=== PATIENT | male | born 1995 | race Asian ===

== ENCOUNTER 2019-03-11 15:52 | Emergency (ER) | payer BC ==
--- NOTE | 2019-03-11 19:11 | UC ---
Abdominal Pain Male HPI - HPI Summary HPI Summary: 23 yo male presents to [facility] ED with abdominal pain. He tells me that on 03/07 he developed abdominal pain around his belly button and vomited a few times. On had some mild pain and was nauseous, but was able to eat and drink. On 03/09 felt well and had no more pain or symptoms. Yesterday 03/10 developed generalized abdominal pain and had 10+ episodes of watery diarrhea. Today his abdominal pain has continued, but has had no nausea, vomiting, or diarrhea. No BM. He has not eaten or drank anything today. Throughout this illness denies fever, chills, SOB, chest pain, dysuria. - History of Current Complaint Chief Complaint: EDAbdPain Stated Complaint: ABD PAIN/NAUSEA/DIARRHEA PER PT Time Seen by Provider: 03/11/19 19:11 Hx Obtained From: Patient Pain Intensity: 6 - Allergies/Home Medications Allergies/Adverse Reactions: Allergies Allergy/AdvReac Type Severity Reaction Status Date / Time No Known Allergies Allergy Verified 03/11/19 15:58 Home Medications: Home Medications NK [No Home Medications Reported] 03/11/19 [History Confirmed 03/11/19] PMH/Surg Hx/FS Hx/Imm Hx - Additional Past Medical History Additional PMH: None - Surgical History Surgical History: None - Family History Known Family History: Positive: None - Social History Occupation: Student Lives: Dormitory/Roommates Alcohol Use: Occasionally Substance Use Type: None Smoking Status (MU): Never Smoked Tobacco Review of Systems All Other Systems Reviewed And Are Negative: Yes Constitutional: Positive: Negative Skin: Positive: Negative Eyes: Positive: Negative ENT: Positive: Negative Respiratory: Positive: Negative Cardiovascular: Positive: Negative Gastrointestinal: Positive: Abdominal Pain, Vomiting, Diarrhea Genitourinary: Positive: Negative Neurovascular: Positive: Negative Neurological: Positive: Negative Psychological: Positive: Negative Physical Exam - Summary Physical Exam Summary: GENERAL: NAD. WDWN. No pain distress. SKIN: No rashes, sores, lesions, or open wounds. NECK: Supple. Nontender. No lymphadenopathy. CHEST: CTAB. No r/r/w. No accessory muscle use. Breathing comfortably and in no distress. CV: RRR. Without m/r/g. Pulses intact. Cap refill <2seconds ABDOMEN: Mild TTP LUQ. Soft. No distention or guarding. No organomegaly. No CVA tenderness. Bowel sounds present NEURO: Alert. PSYCH: Age appropriate behavior. Triage Information Reviewed: Yes Vital Signs: Initial Vital Signs Temp 98.3 F 03/11/19 15:55 Pulse 90 03/11/19 15:55 Resp 16 03/11/19 15:55 BP 146/70 03/11/19 15:55 Pulse Ox 98 03/11/19 15:55 Laboratory Tests 03/11/19 03/11/19 03/11/19 18:55 19:19 19:19 WBC 14.9 H RBC 6.83 H Hgb 12.7 L Hct 40 MCV 58 L MCH 19 L MCHC 32 RDW 16 H Plt Count 202 MPV 8.8 Neut % (Auto) 82.9 Lymph % (Auto) 9.9 [place] % (Auto) 6.8 Eos % (Auto) 0.2 Baso % (Auto) 0.2 Absolute Neuts (auto) 11.9 H Absolute Lymphs (auto) 1.4 Absolute Monos (auto) 1.0 H Absolute Eos (auto) 0 Absolute Basos (auto) 0 Absolute Nucleated RBC 0 Nucleated RBC % 0 Hypochromasia 1+ Anisocytosis 1+ Microcytosis 2+ Target Cells 1+ Sodium 138 Potassium 4.2 Chloride 104 Carbon Dioxide 26 Anion Gap 8 BUN 13 Creatinine 0.90 Est GFR ( Amer) 128.9 Est GFR (Non-Af Amer) 106.5 BUN/Creatinine Ratio 14.4 Glucose 95 Calcium 9.5 Total Bilirubin 1.60 H AST 21 ALT 30 Alkaline Phosphatase 92 C-Reactive Protein 37.44 H Total Protein 7.1 Albumin 4.5 Globulin 2.6 Albumin/Globulin Ratio 1.7 Amylase 27 L Lipase < 10 L Urine Color Yellow Urine Appearance Clear Urine pH 8.0 Ur Specific [place] 1.010 Urine Protein Negative Urine Ketones Trace A Urine Blood Negative Urine Nitrate Negative Urine Bilirubin Negative Urine Urobilinogen Negative Ur Leukocyte Esterase Negative Urine Glucose Negative Vital Signs Reviewed: Yes Re-Evaluation - Re-Evaluation First Eval Re-Evaluation Time: 20:58 Change: Unchanged Comment: Discussed lab results with pt. Will obtain CT at this time to further evaluate abdominal pain. Abd Pain Male Course/Dx - Course Course Of Treatment: CT: FINDINGS: ABDOMEN: Liver: Normal. No mass. Gallbladder and bile ducts: Normal. No calcified stones. No ductal dilation. Pancreas: Normal. No ductal dilation. Spleen: Normal. No splenomegaly. Adrenals: Normal. No mass. Kidneys and ureters: Normal. No hydronephrosis. Stomach and bowel: Normal. No obstruction. No mucosal thickening. Appendix: The appendix is normal in appearance. PELVIS: Bladder: Unremarkable as visualized. Reproductive: Unremarkable as visualized. ABDOMEN and PELVIS: Intraperitoneal space: Normal. No free air. No significant fluid collection. Bones/joints: There is minimal narrowing of the intervertebral disc space at L5-S1. Soft tissues: Unremarkable. Vasculature: Normal. No abdominal aortic aneurysm. Lymph nodes: Normal. No enlarged lymph nodes. IMPRESSION: No acute abdominal abscess identified. In the ED pt was given 1L NS and remained afebrile without any episodes of vomiting or diarrhea. He was able to tolerate po fluids. Discussed labwork and negative CT with pt and he is agreeable to discharge at this time. Suspect viral illness and advised to advance diet as tolerated starting with a BRAT diet. Strongly encouraged that if his symptoms do not improve or if they worsen to return to the ED. - Differential Dx/Clinical Impression Provider Diagnosis: Diarrhea, Abdominal pain Discharge - Sign-Out/Discharge Documenting (check all that apply): Patient Departure Patient Received Moderate/Deep Sedation with Procedure: No - Discharge Plan Condition: Stable Disposition: HOME Patient Education Materials: Acute Diarrhea (ED) Referrals: No Primary Care Phys,NOPCP [Primary Care Provider] - [facility] [Provider Group] - As Soon As Possible Additional Instructions: If you develop a fever, shortness of breath, chest pain, new or worsening symptoms - please call your PCP or go to the ED. Advance your diet as tolerated starting with a BRAT diet. Bananas, Rice, Applesauce, and [place]. I recommend that you follow up with [facility] for a recheck - Billing Disposition and Condition Condition: STABLE Disposition: Home
[2019-03-11] MEDS ORDERED: NS 0.9% 1000 ML** 1,000 ML IV ONE (19:29)
[2019-03-11 19:31] LABS: Hematocrit 40 % (36-46); Hemoglobin 12.7 g/dL (14.0-18.0); Mean Corpuscular HGB Conc 32 g/dL (31-36); Mean Corpuscular Hemoglobin 19 pg (27-31); Mean Corpuscular Volume 58 fL (80-94); Mean Platelet Volume 8.8 fL (7.4-10.4); Platelet Count 202 10^3/uL (150-450); Red Blood Count 6.83 10^6 /uL (4.18-5.48); Red Cell Distribution Width 16 % (10.5-15); White Blood Count 14.9 10^3/uL (3.5-10.8)
[2019-03-11 19:42] LABS: ALT 30 U/L (7-52); AST 21 U/L (13-39); Albumin 4.5 g/dL (3.2-5.2); Albumin/Globulin Ratio 1.7 (1-3); Alkaline Phosphatase 92 U/L (34-104); Anion Gap 8 mmol/L (2-11); BUN/Creatinine Ratio 14.4 (8-20); Blood Urea Nitrogen 13 mg/dL (6-24); C Reactive Protein 37.44 mg/L (<8.01); CO2 Carbon Dioxide 26 mmol/L (22-32); Calcium 9.5 mg/dL (8.6-10.3); Chloride 104 mmol/L (101-111); EGFR African American 128.9 (>60); EGFR Non-African American 106.5 (>60); Globulin 2.6 g/dL (2-4); Glucose 95 mg/dL (70-100); Potassium 4.2 mmol/L (3.5-5.0); Sodium 138 mmol/L (135-145); Total Protein 7.1 g/dL (6.4-8.9)
[2019-03-11 19:46] LABS: Microcytosis 2+
[2019-03-11 19:50] LABS: ABS Basophils 0 10^3/ul (0-0.2); ABS Eosinophils 0 10^3/ul (0-0.6); ABS Lymphocytes 1.4 10^3/ul (1.0-4.8); ABS Neutrophils 11.9 10^3/ul (1.5-7.7); ABS Nucleated RBC 0 10^3/ul; Eosinophil % 0.2 %; Lymphocyte % 9.9 %; Nucleated Red Blood Cells % 0
[2019-03-11 20:19] LABS: Amylase 27 U/L (29-103)
[2019-03-11 20:43] LABS: Urine Appearance Clear; Urine Bilirubin Negative (Negative); Urine Blood Negative (Negative); Urine Color Yellow; Urine Glucose Negative (Negative); Urine Ketones Trace (Negative); Urine Nitrite Negative (Negative); Urine Protein Negative (Negative); Urine Urobilinogen Negative (Negative)
[2019-03-11] MEDS ORDERED: Iohexol 300* (CONTRAST) 10 ML SDV IV ONE (22:24)
[2019-03-12 01:21] VITALS: BP 120/66
== END 2019-03-12 01:11 | disposition home or self-care (01) ==
LOC: ED 15:52
DX: R10.9 Unspecified abdominal pain (principal); R19.7 Diarrhea, unspecified
CPT/HCPCS: 36415; 74177; 80053; 81003; 82150; 83690; 85025; 85060; 86140; 96361; 96374; 99283; Q9967